=== PATIENT | female | born 1990 | race Caucasian/White ===

== ENCOUNTER 2017-04-13 00:47 | Inpatient (IN) | payer BC, OTHER ==
[~2017-04-13] VITALS: Ht 167.6 cm; Wt 54.4 kg
--- NOTE | 2017-04-13 01:40 | NUR ---
Intake Assessment Assessment done at intake office. Patient is alert & oriented to name, place & situation. Pt is not sure of the date. Pt is ambulatory with a steady gait. Speech is clear and audible. Pt does not look intoxicated. Pt is cooperative during interview. Pt appears moderately anxious and noted and somewhat agitated. Vitals noted B/P 127/76, NV 78, RR 16, Temp 98.1, O2Sat 98%. Pt is here for Opiate and Benzo dependence. Pt reported with no known allergies. Pt brought home medications. Explained to patient policy regarding destruction of any controlled substance/prescription brought to facility and handling of all medications. Pt verbalized understanding.
--- NOTE | 2017-04-13 01:46 | NUR ---
ADMISSION NOTE: Patient is a 26 y.o female admitted at [facility] at approximately 0146 am of 04/13/17 for medically supervised withdrawal from Xanax & Heroin. Body search done and skin check done, no contraband found. Skin noted to be intact. Pt is 5'6" tall and weighs 120 lbs in a standing scale. Pt is cooperative during assessment. Patient is oriented to floor unit and room. Patient follows a regular diet at home with no known food and drug allergies. Pt wishes to be full Code. Patient is alert & oriented to name, place and situation. Patient does not remember the date. Patient is ambulatory with a steady gait. Speech is clear and audible. Patient does not look intoxicated. Patient appears moderately anxious and somewhat agitated. Patient is cooperative and answers questions appropriately during interview. No shortness of breath noted. Respiration even & unlabored. Abdomen soft & non-distended. Bowel sounds active in all four quadrants. Slight nausea reported. Patient complained of slight body discomfort. No headache noted. Hand tremors felt but not seen. Patient denies any hallucinations. On admission pt noted with COWS 7 CIWA 10. Patient noted with past medical history of Anxiety, Depression, Hepatitis C and Eating disorder. Pt reported that when she was 14 years she tried cutting her wrists and legs. Pt currently denies SI/HI. Pt was able to provide urine sample for drug screen upon admission and is voiding clear yellow urine with no problems. Substance use: 1. Xanax- Pt started taking Xanax when she was 16 years old. Pt currently takes 6-8 mg on a daily basis for 1.5 months now. Pt last took 7mg of Xanax on the day of admission 04/12/17. 2. Heroin IV- Pt started using Heroin when she was 19 years old. Pt currently uses 1gram intravenously on a daily basis for 1.5 months. Pt last had Heroin 3 days ago 04/09/16 before she started Suboxone to detox herself. Suboxone- Pt started detoxing herself 2 days ago. Pt reported taking Suboxone 12mg SL on 04/11/17 and 4mg on 04/12/17. Pt had been to multiple detox treatment and unable to recall all of them. Pt has last been to [facility] 20 months ago. Patient denies being hospitalized in the last 30 days. Pt reported that her longest period of sobriety was for 20 months from June 2015 to 2016. Pt relapsed 1.5 months ago from Heroin & xanax. Pt decided to come to treatment today because "I want to get clean". Patient reports symptoms when he does not use as "chills, sweating, abdominal cramps, nausea, vomiting, resltess legs, insomnia, headache, & night terrors". Patient refused flu & pneumonia vaccines, educated patient risk & benefits but still refused. Urine drug screen came back positive for Benzodiazepines & Opiates. Fall & Seizure precautions are in place. All needs attended & met. Safety precautions are in place. Bed locked in lowest position. Both side rails up. Call light within pt's reach. Dr. Lambert notified of pts admission. Pt educated regarding use of the call light and all questions answered. Fall precautions ordered. Bed is down with call light in reach. Will continue to monitor patient.
[2017-04-13] MEDS ORDERED: ONDANSETRON 4 MG/2 ML VIAL IM PRN (02:00)
[2017-04-13] MEDS ORDERED: CLONIDINE HCL 0.1 MG TABLET PO PRN (02:00)
[2017-04-13] MEDS ORDERED: IBUPROFEN 400 MG TABLET PO PRN (02:00)
[2017-04-13] MEDS ORDERED: LOPERAMIDE HCL 2 MG CAPSULE PO PRN ×2 (02:00)
[2017-04-13] MEDS ORDERED: LORAZEPAM 2 MG/1 ML VIAL IM PRN (02:00)
[2017-04-13] MEDS ORDERED: DICYCLOMINE HCL 20 MG TABLET PO PRN (02:00)
[2017-04-13] MEDS ORDERED: MAGNESIUM HYDROXIDE 30 ML LIQUID UDC PO PRN (02:00)
[2017-04-13] MEDS ORDERED: METHOCARBAMOL 750 MG TABLET PO PRN (02:00)
[2017-04-13] MEDS ORDERED: MAG HYDROX/AL HYDROX/SIMETH 30 ML LIQUID UDC PO PRN (02:00)
[2017-04-13] MEDS ORDERED: DIAZEPAM 5 MG TABLET PO PRN ×2 (02:00→09:45)
[2017-04-13] MEDS ORDERED: BUPRENORPHINE HCL 2 MG TAB.SUBL SL PRN (02:00)
[2017-04-13] MEDS ORDERED: ACETAMINOPHEN 325 MG TABLET PO PRN (02:00)
[2017-04-13] MEDS ORDERED: DIAZEPAM 10 MG TABLET PO PRN (02:00)
[2017-04-13 02:15] LABS: *URINE HCG, QUAL NEGATIVE (NEGATIVE)
[2017-04-13 02:33] LABS: *AMPHETAMINE, URINE NEGATIVE (NEGATIVE); *BARBITURATE, URINE NEGATIVE (NEGATIVE); *CANNABINOID, URINE NEGATIVE (NEGATIVE); *COCCAINE, URINE NEGATIVE (NEGATIVE); *OPIATE, URINE POSITIVE (NEGATIVE); *PHENCYCLIDINE SCREEN,URINE NEGATIVE (NEGATIVE)
[2017-04-13] MEDS: DIAZEPAM 10 MG TABLET PO PRN ×2 (02:41→07:51)
[2017-04-13] MEDS: ONDANSETRON ODT 4 MG TAB.RAPDIS SL PRN ×3 (02:42→21:40)
--- NOTE | 2017-04-13 02:42 | NUR ---
PRN Administration Patient is moderately anxious and somewhat agitated. Pt noted to be emotional and noted to be crying. Pt stated that she does not feel good. Pt also presented with nausea & sweating. CIWA 10 noted. PRN Valium 10mg PO and Zofran 4mg SL administered as ordered. Will monitor for effectiveness of medication.
[2017-04-13 02:51] LABS: ETHANOL < 3 MG/DL (0-0)
[2017-04-13] MEDS ORDERED: D-ME236L5 PO (02:53)
[2017-04-13] MEDS ORDERED: IBUP200C76 PO (02:53)
[2017-04-13] MEDS ORDERED: DIAZEPAM 10 MG TABLET ONE (02:56)
[2017-04-13] MEDS ORDERED: ONDANSETRON ODT 4 MG TAB.RAPDIS ONE (02:57)
[2017-04-13 03:30] VITALS: BP 108/71
--- NOTE | 2017-04-13 03:30 | NUR ---
Critical Value Pt noted with a critical glucose level of 48 mg/dl. Patient is in bed and easily arousable. Pt is alert & oriented x4. Vitals WNL. B/P 109/71, IN 72, RR 16, O2 Sat 99%. Patient skin is warm & dry to touch. Offered and consumed 1 bottle of orange juice and a candy bar to patient. Will continue to monitor patient.
[2017-04-13 03:36] LABS: ALANINE AMINOTRANSFERASE 58 U/L (14-59); ALKALINE PHOSPHATASE 64 U/L (50-136); AMYLASE 40 U/L (25-115); ASPARTATE AMINOTRANSFERASE 34 U/L (15-37); BILIRUBIN,TOTAL 0.4 mg/dL (0.2-1.0); CARBON DIOXIDE 29 mmol/L (21-32); CHLORIDE 104 mmol/L (98-107); CREATININE 0.8 mg/dL (0.6-1.3); LIPASE 91 U/L (73-393); MAGNESIUM 1.9 mg/dL (1.8-2.4); POTASSIUM 3.9 mmol/L (3.5-5.1); TOTAL PROTEIN, SERUM 7.7 g/dL (6.4-8.2); UREA NITROGEN, BLOOD 11 mg/dL (7-18)
[2017-04-13 03:37] LABS: GLUCOSE 48 mg/dL (74-106)
[2017-04-13 03:44] LABS: THYROID STIMULATING HORMONE 1.937 mIU/mL (0.358-3.740)
[2017-04-13] MEDS ORDERED: BLOOD SUGAR DIAGNOSTIC 1 EACH STRIP VI ONE (04:30)
--- NOTE | 2017-04-13 04:30 | NUR ---
Accucheck 118mg/dl noted after accucheck. Patient in bed and asleep. Patient remained stable and Vitals WNL. Will continue to monitor patient.
--- NOTE | 2017-04-13 07:07 | NUR ---
End of Shift Note: Patient is a 26 y.o female admitted this morning at 0146am for medically supervised withdrawal from Heroin & Xanax use. Patient has PMHx of Anxiety, Depression, Hepatitis C and Eating disorder. Patient has hx of seizure 2 years ago. Patient is on a regular diet with no known food and drug allergies. Full Code status. Patient has no taper yet. Pt received PRN Valium 10mg and Zofran for nausea and was effective. Last COWS 7 CIWA 5 noted. Patient had a critical blood glucose value of 48mg/dl, orange juice and candy bar was given and was effective. Pt noted with a 118mg/dl after 1 hour. Patient is stable at this time and vitals noted WNL. Continue to closely monitored s/s of withdrawal. Patient still asleep at this time with no s/s of distress noted. Patient slept for a total of 2 hours. Fluid intake 1000ml. Encourage pt to increase fluid intake. Voided 1x with no bowel movement. Safety measures in place. Will endorse pt to day shift nurse.
--- NOTE | 2017-04-13 07:15 | NUR ---
Start of Shift Notes: Received patient in her room. Appears anxious with sweating. Oriented x 4. Verbally responsive. Tearful. Verbalizing "I feel like crap, I am so sick." Pulse 92 while at rest. Respirations even and unlabored. No SOB noted. Skin warm and moist to touch. Abdomen soft and non-distended with (+) BS in all 4 quadrants. Noted with complains of abdominal cramps and muscle aches 6/10. Bladder non-distended. No complains of bladder discomfort noted. Voids independently. Ambulatory ad judy with steady gait. Patient is a 26 year old female admitted for BZO/opiate dependence. Has past medical hx of Hep C, anxiety, depression, and eating disorder. NKA. FULL CODE. Regular diet. On fall and seizure precautions. Educated patient on her current plan of care for the day and her medication regimen. PRN Valium and Zofran given during the night. Last COWS 7/CIWA 5. All needs met and attended. Will continue to monitor.
--- NOTE | 2017-04-13 07:51 | NUR ---
Bentyl 20mg/Clonidine 0.1mg/Robaxin 750mg/Valium 10 mg PO given: Patient's COWS 7, CIWA 10, noted tearful, anxious and verbalizing "I feel like crap." Noted with complain of stomach cramps, 6/10 muscle aches. Skin moist, noted with sweating and complains of chills and hot flashes. Patient appears to have a panic attack with UT of 92 at rest. Medicated patient with Bentyl 20 mg PO/Clonidine 0.1mg PO/Robaxin 750 mg PO and Valium 10 mg PO per CIWA score. Patient did not meet criteria for Subutex administration at this time. Will monitor for effectiveness.
[2017-04-13 08:00] VITALS: BP 110/79
[2017-04-13 08:12] LABS: BASOPHILS % (AUTO) 0.4 % (0.0-2.0); EOSINOPHILS # (AUTO) 0.2 K/uL (0.0-0.7); HEMATOCRIT 38.4 % (31.2-41.9); HEMOGLOBIN 13.3 g/dL (10.9-14.3); LYMPHOCYTES # (AUTO) 2.9 K/uL (20.0-40.0); LYMPHOCYTES % (AUTO) 38.2 % (20.5-51.5); MEAN CORPUSCULAR HEMOGLOBIN 31.1 uug (24.7-32.8); MEAN CORPUSCULAR HGB CONC 35 g/dL (32.3-35.6); MEAN CORPUSCULAR VOLUME 89.9 fL (75.5-95.3); MONOCYTES # (AUTO) 0.7 K/uL (2.0-10.0); MONOCYTES % (AUTO) 8.7 % (0.0-11.0); NEUTROPHILS # (AUTO) 3.9 K/uL (1.8-8.9); NEUTROPHILS % (AUTO) 50.7 % (38.5-71.5); PLATELET COUNT (AUTO) 292 K/uL (179-408); RED BLOOD CELL COUNT(AUTO) 4.27 MIL/uL (3.63-4.92); WHITE BLOOD COUNT (AUTO) 7.7 K/uL (3.8-11.8)
--- NOTE | 2017-04-13 08:51 | NUR ---
Re-assessment: Bentyl/Clonidine/Robaxin and Valium COWS 5/CIWA 5. Patient verbalizes relief from abdominal cramps, less chills and sweats noted. PL 3/10. Less anxiety, less tremors and less agitation noted. Patient verbalized that all due meds given were effective.
[2017-04-13] MEDS ORDERED: MULTIVITAMINS,THERAPEUTIC TABLET PO SCH (09:00)
--- NOTE | 2017-04-13 10:05 | NUR ---
Zofran 4 mg SL given: Patient complained of nausea. No emesis noted. Medicated patient with Zofran 4 mg SL as ordered. Will monitor for effectiveness.
--- NOTE | 2017-04-13 11:05 | NUR ---
Re-assessment: Per patient, PRN Zofran was effective in reducing patient's nausea.
--- NOTE | 2017-04-13 11:10 | NUR ---
Subutex 4 mg SL given: Patient noted with COWS 15, showing yawning, piloerection of the skin, anxiety, agitation, mild muscle aches and ID 90 at rest. Medicated patient with Subutex 4 mg SL from PRN dose. Will monitor for effectiveness.
[2017-04-13] MEDS ORDERED: NICOTINE POLACRILEX 4 MG GUM-PK OF TEN BC PRN (11:15)
[2017-04-13] MEDS ORDERED: NICOTINE 14 MG/24HR PATCH TD PRN (11:15)
--- NOTE | 2017-04-13 11:40 | NUR ---
Re-assessment: Subutex 4 mg COWS 7, PRN Subutex 4 mg SL effective in reducing patient's withdrawal symptoms.
[2017-04-13 12:00] VITALS: BP 95/53
[2017-04-13] MEDS: DIAZEPAM 10 MG TABLET PO SCH ×3 (12:12→21:40)
--- NOTE | 2017-04-13 13:00 | NUR ---
MD Communication: Patient complained of heavy vaginal discharge and discomfort. Notified Dr. Lambert. New orders received. Orders noted and carried out.
[2017-04-13] MEDS: BUPRENORPHINE HCL 2 MG TAB.SUBL SL SCH ×2 (14:17→21:40)
[2017-04-13 16:00] VITALS: BP 110/63
[2017-04-13 18:53] LABS: *BILIRUBIN,URIN NEGATIVE (NEGATIVE); *BLOOD, URINE NEGATIVE (NEGATIVE); *COLOR,URINE YELLOW (YELLOW); *KETONES,URINE NEGATIVE (NEGATIVE); *PROTEIN,URINE TRACE (NEGATIVE); LEUKOCYTE ESTERASE ,URINE NEGATIVE (NEGATIVE); NITRITE, URINE NEGATIVE (NEGATIVE); UGLUCOSE NEGATIVE (NEGATIVE)
--- NOTE | 2017-04-13 19:08 | NUR ---
End of Shift Notes: Patient initiated her 5-day Valium and 5-day Subutex taper as ordered. No adverse reactions noted. VS monitored closely. No significant abnormalities noted. Withdrawal symptoms were closely monitored. Initial COWS 7/CIWA 10, patient presented with anxiety, agitation, chills, hot flashes, sweating, goosebumps, myalgia, pupil dilation and elevated pulse. Medicated patient with Bentyl, Clonidine, Robaxin, Valium, Zofran and Subutex during the day with help. Last COWS 6/CIWA 4. Denies SI/HI or AV hallucinations. MD aware of patient's complain of heavy vaginal discharge. New orders received. Orders noted and carried out. Per patient, Subutex and Valium has been effective in reducing her withdrawal symptoms. Unable to participate in group and activities due to her withdrawal symptoms. Compliant with care and treatment. All needs met and attended. Will continue to monitor closely.
[2017-04-13 19:10] LABS: *CLARITY,URINE SLIGHTLY HAZY (CLEAR)
[2017-04-13 19:11] LABS: BACTERIA,URINE FEW /HPF (NONE SEEN); MUCUS,URINE MANY /LPF (0-FEW); SQUAMOUS EPITHELIAL CELL,UR MODERATE /HPF (NONE SEEN); WBC,URINE 0-3 /HPF (0-3)
--- NOTE | 2017-04-13 19:15 | NUR ---
Start of Shift Note: Patient is a 26 y.o female admitted this morning at 0146am for medically supervised withdrawal from Heroin & Xanax use. Patient reported using Xanax 6-8 mg daily and Heroin 1 gram daily for 1.5 months. Patient has PMHx of Anxiety, Depression, Hepatitis C and Eating disorder. Patient has hx of seizure 2 years ago. Patient is on a regular diet with no known food and drug allergies. Full Code status. Patient started on a 5-day Valium and 5-day Subutex taper and tolerating well. Last COWS 6 CIWA 4. Pt received PRN Bentyl, Clonidine, Robaxin, Zofran, Valium & Subutex during day shift. Patient remained alert & oriented x4. No shortness of breath noted. Respiration even & unlabored. Abdomen soft & non-distended. Patient presented with complaints of nausea, 6/10 generalized body aches, stuffy nose, chills & anxiety. Hand tremors felt but not seen. Patient denies any hallucinations. Safety precautions are in place. Bed locked in lowest position. Both side rails up. Call light within pts reach. Will continue to monitor patient.
[2017-04-13 20:00] VITALS: BP 102/63
[2017-04-13] MEDS: buPROPion 75 MG TABLET PO SCH (21:40)
[2017-04-13] MEDS: GABAPENTIN 300 MG CAPSULE PO SCH (21:40)
[2017-04-13] MEDS: MIRALAX 17 GM POWD.PACK PO PRN (21:41)
--- NOTE | 2017-04-13 21:41 | NUR ---
PRN Miralax & Zofran Patient complained of nausea & constipation. no episode of vomiting noted. Abdomen soft & non-distended. PRN Miralax & Zofran administered as ordered. Will continue to monitor patient.
--- NOTE | 2017-04-13 22:41 | NUR ---
PRN Reassessment Patient verbalized improved nausea after medication administration. Pt still noted with no bowel movement. Will continue to monitor patient for bowel movement.
[2017-04-14] VITALS: BP 88/43
[2017-04-14 04:00] VITALS: BP 103/54
[2017-04-14] MEDS: IBUPROFEN 600 MG TABLET PO PRN ×2 (04:19→20:35)
--- NOTE | 2017-04-14 04:19 | NUR ---
PRN Motrin Patient complained of swelling & 6/10 pain on her right upper gums. PRN Motrin administered as ordered. Will monitor for effectiveness of medication.
--- NOTE | 2017-04-14 05:19 | NUR ---
PRN Reassessment Patient asleep in bed and appears comfortable. No s/s of distress noted. Safety measures in place. Will continue to monitor patient.
--- NOTE | 2017-04-14 07:09 | NUR ---
End of Shift Note: Patient is a 26 y.o female admitted this morning on 04/13/16 for medically supervised withdrawal from Heroin & Xanax use. Patient has PMHx of Anxiety, Depression, Hepatitis C and Eating disorder. Patient has hx of seizure 2 years ago. Patient is on a regular diet with no known food and drug allergies. Full Code status. Patient is on a 5-day Subutex and 5-day Valium taper and tolerating well. No adverse reactions noted. Pt received PRN Zofran, Miralax & Motrin during my shift. Last COWS 7 CIWA 4 noted. Patient had an uneventful night. Patient is stable and remains compliant with medications. Closely monitored symptoms of withdrawal. Vitals monitored closely and noted within normal limits. Patient still asleep at this time with no s/s of distress noted. Patient slept for a total of 7 hours. Fluid intake 1329 ml. Encourage pt to increase fluid intake. Voided 3x with no bowel movement. Safety measures in place. Will endorse pt to day shift nurse.
--- NOTE | 2017-04-14 08:00 | NUR ---
START OF SHIFT Received report from night nurse. 26 year old female admitted on 04/13/17 for opiate and benzo withdrawals. Pt is on a 5 day Valium and 5 day Subutex taper and is tolerating well. PRN Miralax administered and per report not effective. PRN Zofran and Motrin administered and effective. Pt slept for 7 hours. Most recent COWS is 7 and CIWA is 4. Pt c/o "fishy" odor from vagina, urine culture results are no growth. Safety measures are in place, will continue to monitor.
[2017-04-14 08:21] VITALS: BP 92/55
[2017-04-14] MEDS: DIAZEPAM 10 MG TABLET PO SCH ×3 (08:52→21:54)
[2017-04-14] MEDS: buPROPion 75 MG TABLET PO SCH ×2 (08:52→21:54)
[2017-04-14] MEDS: GABAPENTIN 300 MG CAPSULE PO SCH ×4 (08:52→21:55)
[2017-04-14] MEDS ORDERED: TUBERCULIN,PURIF.PROT.DERIV. 5 TU/0.1 ML TEST ID ONE (09:00)
[2017-04-14] MEDS ORDERED: BUPRENORPHINE HCL 2 MG TAB.SUBL SL SCH (09:00)
--- NOTE | 2017-04-14 09:05 | NUR ---
MD COMMUNICATION Pt c/o "fishy" odor from vagina, denies pain and difficulty upon urinating, denies d/c, urine culture results are no growth. MD is aware, NNO at this time.
[2017-04-14] MEDS: MIRALAX 17 GM POWD.PACK PO PRN (11:28)
--- NOTE | 2017-04-14 11:34 | NUR ---
PRN TYLENOL Pt c/o 11/09 headache, PRN Tylenol administered as ordered. Will reassess.
[2017-04-14 12:00] VITALS: BP 106/62
--- NOTE | 2017-04-14 12:34 | NUR ---
REASSESSMENT Pt denies pain at this time, medication was effective.
[2017-04-14] MEDS ORDERED: METRONIDAZOLE 500 MG TABLET PO SCH (13:45)
[2017-04-14] MEDS: BUPRENORPHINE HCL 2 MG TAB.SUBL SL SCH ×2 (14:07→21:54)
[2017-04-14 15:13] LABS: HEPATITIS B SURFACE AG Negative (Negative)
[2017-04-14 16:59] VITALS: BP 100/63
--- NOTE | 2017-04-14 18:24 | NUR ---
END OF SHIFT Patient continues on taper and tolerates well. S/S of withdrawals are controlled with ordered medications. Most recent COWS are 5 and CIWA 6 at 1700. V/S remain WNL. PRN Miralax administered and ineffective, PRN Tylenol administered for headache and effective. Pt was started on Flagyl 500mg PO Q12H for bacterial vaginosis. Pt encouraged to drink fluids and eat meals. Pt states she suffers from an eating disorder. Therapist Valentin spoke with client and encouraged client to be compliant with group, and patient attended group. Pt verbalizes feelings and communicates with peers. Pt ate 100% of dinner. All needs met at this time. Safety measures are in place, night nurse to continue monitoring.
--- NOTE | 2017-04-14 19:30 | NUR ---
START OF SHIFT Pt is a 26 y/o female admitted on 04/13/17 for benzo and opiate dependence. Pt was dependent on Xanax 6-8 mg daily and heroin IV 1 gram daily for 1.5 months. Pt is full code, NKA, regular diet and on fall/seizure precautions. Pt reports PMH of seizure r/t w/d 2 years ago, hepatitis C, anxiety, depression, eating disorder and currently has bacterial vaginosis. Pt will start her first dose of Flagyl tonight. Pt is on a 5 day Valium and 5 day Subutex taper that started on 04/13/17, tolerating well. Pt received PRN Miralax and Tylenol and last COWS 5 CIWA 6 during day shift. Upon assessment pt presents with anxiety, agitation, restlessness, difficulty sleeping, headache, back pain 7/10, decreased appetite, tactile disturbances in fingers, dysphoria and anhedonia. Pt states she has been having night terrors. Reports her last BM was 2 days ago and has still not had a BM since administration of Miralax. Denies N/V/D. Denies chest pain or SOB. Respirations even and unlabored. Medications due. Safety measures in place.
[2017-04-14 20:00] VITALS: BP 106/50
[2017-04-14] MEDS: METRONIDAZOLE 500 MG TABLET PO SCH (20:35)
--- NOTE | 2017-04-14 20:35 | NUR ---
PRN MOTRIN ADMINISTRATION Pt reports back pain and headache 10/09. Safety measures in place. Call light within reach. Will continue to monitor.
--- NOTE | 2017-04-14 21:35 | NUR ---
PRN MOTRIN REASSESSMENT Pt reports improvement in back pain to tolerable level and that headache is currently ceased. Safety measures in place. Call light within reach. Will continue to monitor.
--- NOTE | 2017-04-15 | NUR ---
COWS/CIWA DEFERRED AND VITALS REFUSED Pt laying in bed with eyes closed. COWS/CIWA deferred, to be assessed when pt is awake per orders. Vitals refused. Respirations 16, even and unlabored. Safety measures in place. Call light within reach. Will continue to monitor.
--- NOTE | 2017-04-15 07:06 | NUR ---
END OF SHIFT Pt is a 26 y/o female admitted on 04/13/17 for benzo and opiate dependence. Pt was dependent on Xanax 6-8 mg daily and heroin IV 1 gram daily for 1.5 months. Pt is full code, NKA, regular diet and on fall/seizure precautions. Pt reports PMH of seizure r/t w/d 2 years ago, hepatitis C, anxiety, depression, eating disorder and currently has bacterial vaginosis. Pt started her first dose of Flagyl last night. Pt is on a 5 day Valium and 5 day Subutex taper that started on 04/13/17, tolerating well. Pt presented with anxiety, agitation, restlessness, difficulty sleeping, headache, back pain /10, decreased appetite, tactile disturbances in fingers, dysphoria and anhedonia. Pt states she has been having night terrors. Pt reports her last BM was 2 days ago. Scheduled medications and PRN Motrin administered, effective in S/S of withdrawal as verbalized by pt. Last COWS 5 and CIWA 9 at 1999. Pt slept 6 hours. Intake 796 ml, void x 4, stool x 0. Safety measures in place. Call light within reach. Pts needs have been met. Endorsed to day shift nurse.
--- NOTE | 2017-04-15 07:50 | NUR ---
START OF SHIFT NOTE Received report from night nurse, 26 year old female admitted for Benzo and Opiate dependence. Patient cont on 5 days Valium/5 days Subutex taper tolerating well. Per endorsement pt was given PRN Motrin effective per night nurse, last CIWA score was 9 and COWS was 5, slept for 6 hours. Patient received awake, alert and oriented x4. Patient was educated regarding plan of care for the day and medication regimen. Safety measures in place. Call light with in reach. Will continue to monitor.
[2017-04-15 08:00] VITALS: BP 104/62
[2017-04-15] MEDS: GABAPENTIN 300 MG CAPSULE PO SCH ×3 (08:27→20:54)
[2017-04-15] MEDS: DIAZEPAM 5 MG TABLET PO SCH ×4 (08:28→20:54)
[2017-04-15] MEDS: METRONIDAZOLE 500 MG TABLET PO SCH ×2 (08:28→20:54)
[2017-04-15] MEDS: BUPRENORPHINE HCL 2 MG TAB.SUBL SL SCH ×3 (08:28→20:53)
[2017-04-15] MEDS: IBUPROFEN 600 MG TABLET PO PRN (08:41)
--- NOTE | 2017-04-15 08:41 | NUR ---
PRN MOTRIN Patient was c/o of headache 5/10, PRN Motrin 600mg PO was given as ordered. Will cont to monitor and reassess.
--- NOTE | 2017-04-15 09:41 | NUR ---
MOTRIN REASSESSMENT Per pt PRN Motrin was effective in reducing headache 1/10.
[2017-04-15] MEDS: buPROPion 75 MG TABLET PO SCH (09:53)
[2017-04-15 12:00] VITALS: BP 113/60
[2017-04-15] MEDS ORDERED: MAGNESIUM CITRATE 296 ML BOTTLE PO ONE (14:00)
[2017-04-15 16:00] VITALS: BP 97/58
--- NOTE | 2017-04-15 19:19 | NUR ---
END OF SHIFT NOTE Gave report to night nurse, 26 year old female admitted for Benzo/Opioids dependence. Patient remains A/O x4. Pt was cont on a 5 day Subutex and 5 Days Valium taper and is tolerating well. During shift pt received PRN Motrin noted to be effective. Pt encouraged to attend groups and activities. Pt seen socializing with peers. Most recent COWS is 3, CIWA-3. All pertinent information provided to night nurse. Night nurse will continue to monitor.
--- NOTE | 2017-04-15 19:30 | NUR ---
START OF SHIFT Pt is a 26 year old female admitted for Benzo and Opiate dependency. Pt cont on 5 days Valium/5 days Subutex taper as ordered and is tolerating well.Pt has NKA,on full code,regular diet.PMH of Hep C,anxiety,depression and eating disorder.Last COWS/CIWA=3. Pt received awake, alert and oriented x4.All safety measures in place. Call light with in reach. Will continue to monitor.
[2017-04-15 20:00] VITALS: BP 106/65
[2017-04-15] MEDS: PRAZOSIN HCL 1 MG CAPSULE PO SCH (20:53)
[2017-04-15] MEDS: SENNOSIDES 1 TABLET PO SCH (21:00)
[2017-04-15] MEDS: ONDANSETRON ODT 4 MG TAB.RAPDIS SL PRN (21:00)
--- NOTE | 2017-04-15 21:00 | NUR ---
PRN ZOFRAN GIVEN ORDERED FOR C/O N/V X 2.WILL MONITOR FOR EFFECTIVENESS.
--- NOTE | 2017-04-15 22:02 | NUR ---
PRN F/U VOMITING CEASED,NAUSEA IMPROVED.PT STATES FEELING BETTER.
[2017-04-16] VITALS: BP 101/55
--- NOTE | 2017-04-16 | NUR ---
COWS/CIWA DEFERRED Pt laying in bed with eyes closed,in deep sleep. COWS/CIWA deferred, to be assessed when pt is awake per orders. Safety measures in place. Call light within reach. Will continue to monitor.
[2017-04-16 04:00] VITALS: BP 100/61
--- NOTE | 2017-04-16 06:42 | NUR ---
END OF SHIFT Pt is a 26 year old female admitted for Benzo and Opiate dependency. Pt cont on 5 days Valium/5 days Subutex taper as ordered and is tolerating well.Pt has NKA,on full code,regular diet.PMH of Hep C,anxiety,depression and eating disorder.Last COWS/CIWA=3. Pt is awake, alert and oriented x4.PRN Zofran given for N/V with good effect.Pt slept 7 hrs,fluid intake was 1000 mls,voided x 3, b/m x 2. All safety measures in place. Call light with in reach. Will continue to monitor.
--- NOTE | 2017-04-16 07:40 | NUR ---
START OF SHIFT NOTE Received report from night nurse, 26 year old female admitted for Benzo and Opiate dependence. Patient cont on 5 days Valium/5 days Subutex taper tolerating well. Per endorsement pt was given PRN Zofran effective per night nurse, last CIWA/COWS score was 3, slept for 6 hours. Patient received awake, alert and oriented x4. Patient was educated regarding plan of care for the day and medication regimen. Safety measures in place. Call light with in reach. Will continue to monitor. Addendum: 04/16/17 at 1108 by ALETA ROBERTSON LVN slept for 7 hours.
[2017-04-16 08:00] VITALS: BP 90/51
[2017-04-16] MEDS: METRONIDAZOLE 500 MG TABLET PO SCH ×2 (08:07→21:37)
[2017-04-16] MEDS: GABAPENTIN 300 MG CAPSULE PO SCH ×3 (08:08→21:37)
[2017-04-16] MEDS: DIAZEPAM 5 MG TABLET PO SCH ×3 (08:08→21:37)
[2017-04-16] MEDS: BUPRENORPHINE HCL 2 MG TAB.SUBL SL SCH ×2 (08:08→22:35)
[2017-04-16] MEDS: buPROPion SR 100 MG TABLET.SA PO SCH (08:09)
[2017-04-16 12:00] VITALS: BP 112/79
[2017-04-16] MEDS: IBUPROFEN 600 MG TABLET PO PRN ×2 (14:13→21:44)
--- NOTE | 2017-04-16 14:13 | NUR ---
PRN MOTRIN Patient was c/o of headache 5/10, PRN Motrin 600mg PO was given as ordered. Will cont to monitor and reassess.
--- NOTE | 2017-04-16 15:13 | NUR ---
MOTRIN REASSESSMENT Per pt PRN Motrin was effective in reducing headache 1/10.
[2017-04-16 16:00] VITALS: BP 123/71
--- NOTE | 2017-04-16 19:17 | NUR ---
END OF SHIFT NOTE Gave report to night nurse, 26 year old female admitted for Benzo/Opioids dependence. Patient remains A/O x4. Pt was cont on a 5 day Subutex and 5 Days Valium taper and is tolerating well. During shift pt received PRN Motrin noted to be effective. Pt encouraged to attend groups and activities. Pt seen socializing with peers. Most recent COWS is 2, CIWA-2. All pertinent information provided to night nurse. Night nurse will continue to monitor.
--- NOTE | 2017-04-16 19:20 | NUR ---
START OF SHIFT Patient is a 26-year-old female admitted on 04/13/17 for Xanax, heroin, and Suboxone dependence. Patient is FULL code status, on a regular diet, with NKA/NKFA. Patient has a past medical history of anxiety, depression, eating disorder, Hep C, and bacterial vaginosis (2018). Patient is on fall and seizure precautions, with history of seizures, last one reported as 2 years ago. Patient is currently on a 5-day Valium and 5-day Subutex taper, tolerating well. Upon assessment, patient is resting in bed, skin dry and intact; patient is arousable to name and oriented x4. Safety measures in place, bed locked in low position, side rails up x2, call light within reach. Will continue to monitor.
[2017-04-16 20:00] VITALS: BP 90/40
[2017-04-16] MEDS: PRAZOSIN HCL 1 MG CAPSULE PO SCH (21:00)
[2017-04-16] MEDS: SENNOSIDES 1 TABLET PO SCH ×2 (21:00→22:35)
--- NOTE | 2017-04-16 21:44 | NUR ---
PRN MOTRIN Patient reports headache of 7/10. PRN Motrin given PO. Safety measures in place, call light within reach. Will reassess in one hour.
--- NOTE | 2017-04-16 22:44 | NUR ---
PRN MOTRIN REASSESSMENT Patient reports headache pain is now 4/10. PRN Motrin effective. Safety measures in place, call light within reach. Will continue to monitor.
[2017-04-17] VITALS: BP 88/42
--- NOTE | 2017-04-17 | NUR ---
MIDNIGHT CIWA AND COWS DEFERRED CIWA and COWS deferred due to patient asleep; to be assessed and scored while patient is awake. Respirations are even and unlabored. Safety measures in place, call light within reach. Will continue to monitor.
[2017-04-17] MEDS: diphenhydrAMINE 50 MG CAPSULE PO PRN (00:23)
--- NOTE | 2017-04-17 00:23 | NUR ---
PRN BENADRYL Patient reports some difficulty sleeping and is requesting aid. PRN Benadryl given PO. Safety measures in place, call light within reach. Will reassess in one hour.
--- NOTE | 2017-04-17 01:23 | NUR ---
PRN BENADRYL REASSESSMENT Patient is resting in bed with eyes closed, respirations even and unlabored. PRN Benadryl effective. Safety measures in place, call light within reach. Will continue to monitor.
[2017-04-17 04:00] VITALS: BP 82/40
--- NOTE | 2017-04-17 04:00 | NUR ---
CIWA AND COWS DEFERRED 4AM CIWA and COWS deferred due to patient asleep; to be assessed and scored while patient is awake. Safety measures in place, call light within reach. Will continue to monitor.
--- NOTE | 2017-04-17 07:08 | NUR ---
END OF SHIFT Patient is a 26-year-old female admitted on 04/13/17 for Xanax, heroin, and Suboxone dependence. Patient is FULL code status, on a regular diet, with NKA/NKFA. Patient has a past medical history of anxiety, depression, eating disorder, Hep C, and bacterial vaginosis (2018). Patient is on fall and seizure precautions, with history of seizures, last one reported as 2 years ago. Patient is currently on a 5-day Valium and 5-day Subutex taper, tolerating well. Patient slept for 8 hours, total intake of 1,000 mL, void x1, stool x0. Patient received PRN Motrin and Benadryl, both effective. Patient's last COWS 2, and CIWA 4. Safety measures in place, bed locked in low position, side rails up x2, call light within reach. Will endorse to day shift.
--- NOTE | 2017-04-17 07:57 | NUR ---
START OF SHIFT NOTE Received report from night nurse, 26 year old female admitted for Benzo and Opiate dependence. Patient cont on 5 days Valium/5 days Subutex taper tolerating well. Per endorsement pt was given PRN Benadryl effective per night nurse, last CIWA-4,COWS-2 slept for 8 hours. Patient received awake, alert and oriented x4. Patient was educated regarding plan of care for the day and medication regimen. Safety measures in place. Call light with in reach. Will continue to monitor.
[2017-04-17 08:00] VITALS: BP 104/60
[2017-04-17] MEDS: METRONIDAZOLE 500 MG TABLET PO SCH ×2 (08:40→22:32)
[2017-04-17] MEDS: BUPRENORPHINE HCL 2 MG TAB.SUBL SL SCH ×2 (08:40→22:33)
[2017-04-17] MEDS: buPROPion SR 100 MG TABLET.SA PO SCH (08:40)
[2017-04-17] MEDS: GABAPENTIN 300 MG CAPSULE PO SCH ×3 (08:40→22:33)
[2017-04-17] MEDS: DIAZEPAM 5 MG TABLET PO SCH ×2 (08:40→22:33)
[2017-04-17] MEDS ORDERED: BUPRENORPHINE HCL 2 MG TAB.SUBL SL SCH (09:00)
--- NOTE | 2017-04-17 10:14 | NUR ---
Therapist prompted client about group times. Client stated she would attend all groups today.
[2017-04-17 12:00] VITALS: BP 107/58
[2017-04-17] MEDS ORDERED: FLUCONAZOLE 100 MG TABLET PO ONE (12:30)
--- NOTE | 2017-04-17 15:44 | NUR ---
Therapist prompted client about group times. Client stated she does not want to go to the afternoon group because she wants to rest.
[2017-04-17 16:00] VITALS: BP 95/55
--- NOTE | 2017-04-17 18:24 | NUR ---
Therapist was notified by corporate planner (Chalo) that client stated "I want to " after finding out her boyfriend relapsed. Therapist assessed for suicidality - client has no plan or means. Client stated, "I did say I want to ...but no I don't want to - I just don't want to feel this way." Client is AMA risk as she stated, "hearing my boyfriend high makes me want to shoot up."
--- NOTE | 2017-04-17 19:11 | NUR ---
END OF SHIFT NOTE Gave report to night nurse, 26 year old female admitted for Benzo/Opioids dependence. Patient remains A/O x4. Pt was cont on a 5 day Subutex and 5 Days Valium taper and is tolerating well. During shift pt did not receive any PRN'S. Pt encouraged to attend groups and activities. Most recent COWS is 2, CIWA-2. All pertinent information provided to night nurse. Night nurse will continue to monitor.
--- NOTE | 2017-04-17 19:30 | NUR ---
START OF SHIFT Pt is a 26 year old female admitted for Benzo and Opiate dependency. Pt cont on 5 days Valium/5 days Subutex taper as ordered and is tolerating well.Pt has NKA,on full code,regular diet.PMH of Hep C,anxiety,depression and eating disorder.Last COWS/CIWA=2. Pt received in room,awake, alert and oriented x4.Mood is sad and depressed.Pt stated that her father last week.Pt denies any suicidal thoughts at this time.All safety measures in place per hospital policy. Call light with in reach. Will continue to monitor.
[2017-04-17 20:00] VITALS: BP 128/65
[2017-04-17] MEDS: PRAZOSIN HCL 1 MG CAPSULE PO SCH (22:32)
[2017-04-17] MEDS: SENNOSIDES 1 TABLET PO SCH (22:33)
--- NOTE | 2017-04-17 22:36 | NUR ---
PT WAS UNABLE TO TAKE HER 2100 MEDICATIONS DUE TO BEING ASLEEP.SHE IS AWAKE NOW AND WILLING TO TAKE HER MEDICATIONS.MEDS GIVEN ORDERED.
--- NOTE | 2017-04-18 | NUR ---
COWS/CIWA DEFERRED; V/S REFUSED. Pt laying in bed with eyes closed,in deep sleep. COWS/CIWA deferred d/t pt sleeping;v/s refused. Safety measures in place. Call light within reach. Will continue to monitor.
[2017-04-18] MEDS: diphenhydrAMINE 50 MG CAPSULE PO PRN (01:35)
--- NOTE | 2017-04-18 01:35 | NUR ---
PRN MED PRN BENADRYL GIVEN ORDERED FOR C/O INSOMNIA.WILL MONITOR.
--- NOTE | 2017-04-18 02:35 | NUR ---
PRN F/U PT LYING IN BED,FALLING ASLEEP.DOES NOT WANT TO BE WOKEN UP FOR V/S.
--- NOTE | 2017-04-18 06:48 | NUR ---
END OF SHIFT Pt is a 26 year old female admitted for Benzo and Opiate dependency. Pt cont on 5 days Valium/5 days Subutex taper as ordered and is tolerating well.Pt has NKA,on full code,regular diet.PMH of Hep C,anxiety,depression and eating disorder.Last COWS/CIWA=2.PRN Benadryl was given with moderate effect; pt slept 6 hrs; fluid intake was 1600 mls; voided x 3; had b/m x 1. .All safety measures in place per hospital policy. Call light with in reach. Will continue to monitor.
[2017-04-18 07:06] LABS: *GC NAA Negative (Negative); *TRIC.VAG. NAA Negative (Negative)
--- NOTE | 2017-04-18 07:30 | NUR ---
BEGINNING OF SHIFT Patient 26 year old male, admitting Dx: opiate/bzo dependence. Patient endorsement report received from [facility] nurse, all pertinent information discussed. Patient currently with ongoing 5 day Valium and 5 day Subutex taper as ordered, per [facility] well tolerated. Patient slept for 6 hours, received PRN: Benadryl during [facility]. Patient slept for 6 hours, last cow: 2 and ciwa score of: 2. Patient received in bed awake, alert and oriented x4, educated regarding plan of care for the day and medication regimen. Safety measures in place. fall and seizure precautions observed at all times.
[2017-04-18 08:16] VITALS: BP 93/63
[2017-04-18] MEDS: GABAPENTIN 300 MG CAPSULE PO SCH ×3 (08:26→21:27)
[2017-04-18] MEDS: METRONIDAZOLE 500 MG TABLET PO SCH ×2 (08:26→21:27)
[2017-04-18] MEDS: buPROPion SR 100 MG TABLET.SA PO SCH (08:26)
[2017-04-18] MEDS ORDERED: BUPRENORPHINE HCL 2 MG TAB.SUBL SL SCH (09:00)
[2017-04-18] MEDS ORDERED: DIAZEPAM 5 MG TABLET PO SCH (09:00)
[2017-04-18] MEDS ORDERED: FLUCONAZOLE 100 MG TABLET PO ONE (09:00)
[2017-04-18 12:21] VITALS: BP 99/54
[2017-04-18] MEDS: IBUPROFEN 600 MG TABLET PO PRN (16:15)
--- NOTE | 2017-04-18 16:15 | NUR ---
PRN MOTRIN Patient c/o back ache 08/09, provided with non pharmacological interventions with no relief, administered Motrin as ordered, will monitor effectiveness of medication.
[2017-04-18 16:55] VITALS: BP 113/67
--- NOTE | 2017-04-18 17:15 | NUR ---
MOTRIN REASSESSMENT Patient reports medication effective, patient reports current pain level 0/10.
--- NOTE | 2017-04-18 19:03 | NUR ---
END OF SHIFT Patient alert and oriented x4, compliant with therapeutic plan of care. Vital signs WNL during shift. patient with admitting Dx: opiate/bzo dependence. Received last dose of 5 day Valium and 5 day Subutex taper as ordered, well tolerated, no ASE noted. Patient is scheduled to be discharged tomorrow morning, noted self motivated towards sobriety. Patient was administered PRN: Motrin during shift, medication was effective one hour post administration. . During shift presented with: chills, moist eyes, irritability, anxiety, and mild agitation. 0900 CIWA: 4, COW: 4; 1300 COW: 2, CIWA: 2; 1700 COW: 2, CIWA: 2. Detox medication effective at reducing withdrawal symptoms. Patient encouraged increase In PO Fluid intake as tolerated, to facilitate detox. Encouraged to attend group therapies/sessions to learn new coping skills to prevent relapse, noted attending and participating. Denies SI/HI. Patient endorsed to field administrator nurse, all pertinent information was discussed. Safety measures in place. call light with in reach.
--- NOTE | 2017-04-18 19:30 | NUR ---
START OF SHIFT Pt is a 26 y/o female admitted on 04/13/17 for benzo and opiate dependence. Pt is full code, NKA, regular diet and on fall/seizure precautions. Pt reports PMH of seizure 2 years ago, hepatitis C, anxiety, depression, eating disorder and currently has bacterial vaginosis. Pt reports improvement in BV since starting Flagyl. Pt finished a 5 day Valium and Subutex taper and is scheduled to be d/c tomorrow. Upon assessment pt presents with anxiety, agitation, fatigue, headache 2/10, dysphoria and anhedonia. Respirations even and unlabored. Denies N/V/D. Reports mildly loose stools. Encouraged increased fluids. Denies chest pain or SOB. Medications due. Safety measures in place. Call light within reach. Endorsed to day shift nurse.
[2017-04-18 20:00] VITALS: BP 103/64
[2017-04-18] MEDS ORDERED: BUPR100T6 PO (20:14)
[2017-04-18] MEDS ORDERED: GABA-534 PO (20:14)
[2017-04-18] MEDS ORDERED: IBUP-1955 PO (20:14)
[2017-04-18] MEDS ORDERED: DIPH50CA37 PO (20:14)
[2017-04-18] MEDS ORDERED: DICY20TA28 PO (20:14)
[2017-04-18] MEDS ORDERED: METH-406 PO (20:14)
[2017-04-18] MEDS ORDERED: PRAZ1CAP2 PO (20:14)
[2017-04-18] MEDS: SENNOSIDES 1 TABLET PO SCH (21:27)
[2017-04-18] MEDS: PRAZOSIN HCL 1 MG CAPSULE PO SCH (21:28)
--- NOTE | 2017-04-19 | NUR ---
COWS/CIWA DEFERRED AND VITALS REFUSED Pt is laying in bed with eyes closed, COWS/CIWA deferred, to be assessed when pt is awake per orders. Vitals refused. Respirations even and unlabored. Safety measures in place. Call light within reach. Will continue to monitor.
--- NOTE | 2017-04-19 04:00 | NUR ---
COWS/CIWA DEFERRED AND VITALS REFUSED Pt laying in bed with eyes closed, COWS/CIWA deferred, to be assessed when pt is awake per orders. Respirations 16, even and unlabored. Safety measures in place. Call light within reach. Will continue to monitor.
--- NOTE | 2017-04-19 07:20 | NUR ---
END OF SHIFT Pt is a 26 y/o female admitted on 04/13/17 for benzo and opiate dependence. Pt reports improvement in BV since starting Flagyl. Pt finished a 5 day Valium and Subutex taper and is scheduled to be d/c today. Pt presented with anxiety, agitation, fatigue, headache 2/10, dysphoria and anhedonia. Scheduled medications administered, effective in S/S of withdrawal as verbalized by pt. No PRNs administered. Last COWS 2 and CIWA 4 at 1999. Pt slept 8 hours. Intake 1500 ml, void x 1, stool x 0. Safety measures in place. Call light within reach. Pts needs have been met. Endorsed to day shift nurse.
--- NOTE | 2017-04-19 07:30 | NUR ---
START OF SHIFT Pt 26 y/o female admitted for opiate and benzo dependence. Pt received in room on bed with eyes closed resting, but easily arousable to name. Pt alert and oriented to name, place, and time. Perr[place]. Skin warm and dry to touch. Respirations even and unlabored. It was reported that pt slept for 8 hours last night. Bed on lowest position with side rails x2 up for safety. Call light within reach. No distress noted at this time. Pt is scheduled to be discharged today.
[2017-04-19 08:00] VITALS: BP 102/64
[2017-04-19] MEDS: METRONIDAZOLE 500 MG TABLET PO SCH (08:29)
[2017-04-19] MEDS: buPROPion SR 100 MG TABLET.SA PO SCH (08:29)
[2017-04-19] MEDS: GABAPENTIN 300 MG CAPSULE PO SCH (08:29)
--- NOTE | 2017-04-19 09:27 | NUR ---
DISCHARGE Pt 26 y/o female admitted for opiate and benzo dependence. Pt alert and oriented to name, place, and time. [place]. Skin warm and dry to touch. Respirations even and unlabored. No hand tremors noted. VS wnl. Pt denies any SI. Pt discharged to [place] via private transport. Pt home medications, belongings in cabinet, prescriptions, and discharge papers packed in pt bag. Pt with no belongings in cassette noted. No distress noted.
== END 2017-04-19 08:15 | disposition other institution (70) | DRG 895 ==
LOC: SRC 00:47
PROVIDERS: ADMIT Internal Medicine; ATTEND Internal Medicine
PROC: HZ2ZZZZ Detoxification Services for Substance Abuse Treatment (ICD-10-PCS; principal; 2017-04-13)
PROC: HZ31ZZZ Individual Counseling for Substance Abuse Treatment, Behavioral (ICD-10-PCS; 2017-04-14)
PROC: HZ41ZZZ Group Counseling for Substance Abuse Treatment, Behavioral (ICD-10-PCS; 2017-04-15)
DX: F13.230 Sedative, hypnotic or anxiolytic dependence with withdrawal, uncomplicated (principal); B19.20 Unspecified viral hepatitis C without hepatic coma; F17.210 Nicotine dependence, cigarettes, uncomplicated; Z81.1 Family history of alcohol abuse and dependence; F11.23 Opioid dependence with withdrawal; Z82.49 Family history of ischemic heart disease and other diseases of the circulatory system; Z83.3 Family history of diabetes mellitus; Z81.8 Family history of other mental and behavioral disorders; F41.9 Anxiety disorder, unspecified; F32.9 Major depressive disorder, single episode, unspecified; Z59.1 Inadequate housing; Z59.0 Homelessness; N76.0 Acute vaginitis; K59.00 Constipation, unspecified
CPT/HCPCS: 36415; 70030-TC; 80307; 80346; 80361; 83690; 83735; 84443; 84703; 85025; 86592; 86705; 86803; 87086; 87340; 87491; 87806; A4663; G0480; Q0162; Q0163